=== PATIENT | male | born 1955 | race Caucasian/White ===

== ENCOUNTER 2023-11-12 14:19 | Outpatient (RCR) | payer MEDICARE, OTHER, SELFPAY | END 2023-11-12 23:59 | disposition home or self-care (01) | LOC: RPT 14:19 | PROVIDERS: ATTENDING PHYSICIAN Orthopaedic Surgery Hand Surgery; FAMILY PHYSICIAN Internal Medicine | DX: M25.511 Pain in right shoulder (principal); M75.01 Adhesive capsulitis of right shoulder; Z73.6 Limitation of activities due to disability | CPT/HCPCS: 97010; 97110 ==

== ENCOUNTER 2023-12-03 13:50 | Outpatient (RCR) | payer MEDICARE, OTHER, SELFPAY | END 2023-12-05 14:55 | disposition home or self-care (01) | LOC: RPT 13:50 | PROVIDERS: ATTENDING PHYSICIAN Orthopaedic Surgery Hand Surgery; FAMILY PHYSICIAN Internal Medicine | DX: M25.511 Pain in right shoulder (principal); M75.01 Adhesive capsulitis of right shoulder; Z73.6 Limitation of activities due to disability; M62.81 Muscle weakness (generalized) | CPT/HCPCS: 97010; 97110 ==

== ENCOUNTER → 2024-05-04 10:47 | Outpatient (REF) | payer MEDICARE, OTHER, SELFPAY | LOC: SDSPAT 10:47 | PROVIDERS: ATTENDING PHYSICIAN Internal Medicine Cardiovascular Disease; FAMILY PHYSICIAN Internal Medicine | DX: Z01.818 Encounter for other preprocedural examination (principal); Z95.818 Presence of other cardiac implants and grafts; I10 Essential (primary) hypertension; E10.9 Type 1 diabetes mellitus without complications; I63.89 Other cerebral infarction | CPT/HCPCS: 93005 ==

== ENCOUNTER 2024-06-02 08:00 | Day surgery (SDC) | payer MEDICARE, OTHER, SELFPAY ==
[2024-05-04 09:53] VITALS: BMI 24.9
[2024-06-02 08:28] VITALS: BMI 24.5
[2024-06-02 08:37] VITALS: BP 189/101
[2024-06-02 09:00] VITALS: BP 176/76
[2024-06-02 09:06] LABS: Glucose - Point of Care 207 mg/dl (70-99)
--- NOTE | 2024-06-02 11:07 | ITS.CL.IMPLP ---
[employer] - Implant Loop
Implant Loop
Procedure Report:
Procedure: Extraction of Loop Recorder.
Date of the procedure: 06/02/24
Procedure Physician: Francois Dyson MD [facility]
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
Description of the procedure:
Patient was brought to the holding area after informed consent was obtained. The time out was performed immediately before the procedure.
The left parasternal chest area was prepped and draped in sterile fashion with chlorahexidine prep x 3 times. Lidocaine 1% was injected subcutaneously for local anesthesia. The loop recorder was palpated and the location was identified. An incision
was made at the previoous insertion location. The blunt dissection was done to identify the location of the ILR. The capsule was cut and the ILR was pulled out of the capsule. The dermis was closed with 4-0 Monocryl sutures and steristrips and a
pressure Tegaderm dressing was placed.
There were no immediate complications.
Patient can be discharged home.
Explanted device:
[id number]; Model: DM [id number] Serial #:[id number].
Conclusion:
Successful removal of the loop recorder.
[2024-06-02 11:08] VITALS: BP 149/72
[2024-06-02 11:30] VITALS: BP 150/66
== END 2024-06-02 12:14 | disposition home or self-care (01) ==
LOC: CATH 08:00
PROVIDERS: ATTENDING PHYSICIAN Internal Medicine Cardiovascular Disease; FAMILY PHYSICIAN Internal Medicine
DX: Z09 Encounter for follow-up examination after completed treatment for conditions other than malignant neoplasm (principal); I10 Essential (primary) hypertension; Z86.73 Personal history of transient ischemic attack (TIA), and cerebral infarction without residual deficits; E78.5 Hyperlipidemia, unspecified; I35.1 Nonrheumatic aortic (valve) insufficiency; E10.40 Type 1 diabetes mellitus with diabetic neuropathy, unspecified; K31.84 Gastroparesis; Z87.891 Personal history of nicotine dependence; Z79.4 Long term (current) use of insulin
CPT/HCPCS: 33286; 82962